=== PATIENT | female | born 1985 | race Native Hawaiian/Other Pacific Islander ===

== ENCOUNTER 2022-12-20 10:19 | Outpatient (CLI) | payer BC, SELFPAY | END 2022-12-20 10:20 | disposition home or self-care (01) | PROVIDERS: PCP Family Medicine; Visit Provider Family Medicine | DX: E55.9 Vitamin D deficiency, unspecified (principal); R53.83 Other fatigue; R20.0 Anesthesia of skin | CPT/HCPCS: 80048; 82306; 84443; 86039; 86431 ==

== ENCOUNTER 2023-09-12 10:16 | Outpatient (CLI) | payer BC, SELFPAY | END 2023-09-12 10:17 | disposition home or self-care (01) | PROVIDERS: PCP Family Medicine; Visit Provider Family Medicine | DX: Z00.00 Encounter for general adult medical examination without abnormal findings (principal); R53.83 Other fatigue; E55.9 Vitamin D deficiency, unspecified; N92.0 Excessive and frequent menstruation with regular cycle; F41.1 Generalized anxiety disorder | CPT/HCPCS: 80053; 80061; 82306; 82728; 84443; 85025 ==